=== PATIENT | male | born 1960 | race African-American/Black ===

== ENCOUNTER → 2019-12-07 | Emergency (ER) | payer OTHER ==
[~2019-12-07] VITALS: Ht 172.7 cm; Wt 75.0 kg
[~2019-12-07] MED LIST: IOHEXOL-300 100 ML BOTTLE ONE; KETOROLAC 30MG/ML VIAL IV STA; ONDANSETRON HCL 4MG/2ML INJ IV STA; SODIUM CHLORIDE 0.9% 1,000 ML IV ONE
[2019-12-07 15:58] LABS: BASOPHILS % 0.2 % (0.0-2.0); CHLORIDE 102 mEq/L (98-107); HEMATOCRIT. 50.1 % (42.0-52.0); HEMOGLOBIN. 17.2 g/dL (14.0-18.0); LYMPHOCYTES % 11.6 % (20.0-50.0); MEAN CORPUSCULAR HEMOGLOBIN 30.9 pg (28.0-32.0); MEAN CORPUSCULAR VOLUME 89.9 fL (80.0-94.0); MEAN PLATELET VOLUME 9.2 fl (7.4-10.4); MONOCYTES % 6.3 % (2.0-8.0); NEUTROPHILS % 81.9 % (40.0-76.0); PLATELET 220 x1000/uL (130-400); RED BLOOD CELL COUNT 5.57 mill/uL (4.7-6.1); RED CELL DISTRIBUTION WIDTH 13.6 % (11.6-14.6)
[2019-12-07 17:44] LABS: CLARITY URINE CLEAR (CLEAR); COLOR URINE DARK YELLOW (YELLOW); KETONES URINE 2+ (NEGATIVE); LEUKOCYTE ESTERASE URINE NEGATIVE (NEGATIVE); NITRITE URINE NEGATIVE (NEGATIVE); OCCULT BLOOD URINE NEGATIVE (NEGATIVE); PH URINE 5.5 (4.5-8.0); PROTEIN URINE 1+ (NEGATIVE); SPECIFIC GRAVITY URINE 1.026 (1.005-1.030)
[2019-12-07 18:50] VITALS: BP 189/105
== END | disposition home or self-care (01) ==
LOC: ER 14:41
DX: R05 Cough (principal); R11.0 Nausea; R10.9 Unspecified abdominal pain; R53.83 Other fatigue
CPT/HCPCS: 36415; 71045; 74177; 80053; 81003; 84484; 85025; 93005; 96374; 96375; 99285; J1885; J2405; J7030; Q9967